=== PATIENT | male | born 1990 | race African-American/Black ===

== ENCOUNTER 2017-07-31 19:48 | Emergency (ER) | payer BC ==
[2017-07-31] MEDS ORDERED: Ibuprofen 200 MG TAB ONE (20:36)
[2017-07-31] MEDS ORDERED: Metoclopramide HCl 10 MG TAB PO SCH (21:00)
== END 2017-07-31 21:20 | disposition home or self-care (01) ==
LOC: ERS 19:48
DX: R51 Headache (principal)
CPT/HCPCS: 99283

== ENCOUNTER 2017-11-14 23:24 | Emergency (ER) | payer BC ==
[2017-11-15] MEDS ORDERED: Ketorolac Tromethamine 30 MG/ML VIAL ONE (00:33)
== END 2017-11-15 00:53 | disposition home or self-care (01) ==
LOC: ERS 23:24
DX: M62.830 Muscle spasm of back (principal)
CPT/HCPCS: 96372; J1885

== ENCOUNTER 2023-08-04 14:35 | Emergency (ER) | payer BC | END 2023-08-04 15:20 | disposition home or self-care (01) | LOC: ERS 14:35 | DX: J06.9 Acute upper respiratory infection, unspecified (principal) | CPT/HCPCS: 99283 ==